=== PATIENT | female | born 1960 | race Caucasian/White ===

== ENCOUNTER → 2024-11-16 09:25 | Outpatient (REF) | payer MEDICARE, SELFPAY | LOC: HWWDC 09:25 | PROVIDERS: ATTENDING PHYSICIAN Student in an Organized Health Care Education/Training Program | DX: Z12.31 Encounter for screening mammogram for malignant neoplasm of breast (principal); Z13.820 Encounter for screening for osteoporosis; M81.0 Age-related osteoporosis without current pathological fracture | CPT/HCPCS: 77063; 77067; 77080 ==